=== PATIENT | female | born 1955 | race African-American/Black ===

== ENCOUNTER 2019-11-04 18:16 | Inpatient (IN) | payer MEDICARE ==
[~2019-11-04] VITALS: Ht 160 cm; Wt 47.2 kg
[2019-11-04 21:50] VITALS: BP 146/78
--- NOTE | 2019-11-04 21:50 | NUR ---
GPS ADMISSION NOTES: ADMITTED THIS 64-Y/O, FEMALE, PATIENT ADMITTED ON 5150 HOLD FOR DTS. PER HOLD PT. STATED SHE HAS BEEN VERY SAD DUE TO MARITAL PROBLEMS, AND THINKING THAT SHE HAS NO MORE PURPOSE IN LIFE. PATIENT STATED SHE WENT TO THE [place] WITH THE INTENTION OF KILLING HERSELF BY DRINKING A LOT OF ALCOHOL, DOING COCAINE AND CUTTING SELF. UPON FACE TO FACE ASSESSMENT, PATIENT IS A&O X3-4, DEPRESSED, UNKEMPT, DISHEVELED, CALM AND COOPERATIVE WITH CARE, AMBULATORY. IN NO APPARENT DISTRESS NOTED. DENIES SI/HI/AVH AT THIS TIME. SKIN ASSESSMENT DONE. PATIENT REFUSED TO SIGN ADMISSION CONSENTS, STATES "I AM EXHAUSTED". PT'S RIGHTS HANDBOOK & PT. GUIDELINES BOOK GIVEN & DISCUSSED TO THE PATIENT. PT BELONGINGS WERE INVENTORIED & CHECKED FOR CONTRABAND. PT. IS UNDER THE PSYCHIATRIC CARE OF DR. WHEATLEY, ORDERS OBTAINED & UNDER THE MEDICAL CARE OF DHEERAJ PELLETIER. PATIENT EDUCATED TO THE USE OF CALL MARSHALL. BED ALARM ON. ENVIRONMENTAL SAFETY CHECK DONE. BED LOCKED & IN LOW POSITION. WILL CONTINUE TO MONITOR Q15 MINUTES FOR SAFETY & BEHAVIOR.
[2019-11-04] MEDS ORDERED: BROM2.5T15 PO (22:33)
[2019-11-04] MEDS ORDERED: DIAZ5TAB4 PO (22:34)
[2019-11-04] MEDS ORDERED: TRAM50TA2 PO (22:37)
[2019-11-04] MEDS ORDERED: NORE-2 PO (22:37)
[2019-11-04] MEDS ORDERED: TRAZ-257 PO (22:38)
[2019-11-04] MEDS ORDERED: BUTA1CAP5 PO (22:39)
[2019-11-04] MEDS ORDERED: LORAZEPAM 0.5 MG TABLET PO PRN (23:30)
[2019-11-04] MEDS ORDERED: MAG HYDROX/AL HYDROX/SIMETH 30 ML UDC PO PRN (23:30)
[2019-11-04] MEDS ORDERED: BUTALBITAL/ASPIRIN/CAFFEINE 1 CAP CAPSULE PO PRN (23:30)
[2019-11-04] MEDS ORDERED: ACETAMINOPHEN 325 MG TABLET PO PRN (23:30)
[2019-11-04] MEDS ORDERED: TRAMADOL HCL 50 MG TABLET PO PRN (23:30)
[2019-11-04] MEDS ORDERED: MAGNESIUM HYDROXIDE 30 ML UDC PO PRN (23:30)
[2019-11-04] MEDS ORDERED: BLOOD SUGAR DIAGNOSTIC 1 EACH STRIP IN ONE (23:45)
[2019-11-05] MEDS: TEMAZEPAM 7.5 MG CAPSULE PO PRN ×2 (00:12→01:17)
--- NOTE | 2019-11-05 00:19 | NUR ---
GPS RN NOTE: PATIENT C/O HEADACHE 07/10, TRAMADOL GIVEN ORDERED. PATIENT APPRECIATED. WILL CONTINUE TO MONITOR Q15 MINS FOR SAFETY
[2019-11-05 08:00] VITALS: BP 126/61
[2019-11-05] MEDS ORDERED: ETHINYL ESTRADIOL PO SCH (09:00)
[2019-11-05] MEDS ORDERED: [UNRECOGNIZED DRUG - OTHER] PO SCH (09:00)
--- NOTE | 2019-11-05 10:22 | NUR ---
Family Contact: SW called the pts Rashi ([phone]), but the number was not in service. Addendum: 11/05/19 at 1023 by JUSTUS ACUNA KALPANA will speak to the pt to confirm the phone number in case there is a mistake so that the SW can contact him.
--- NOTE | 2019-11-05 10:33 | NUR ---
Family Contact: KALPANA called the pts , Rashi ([phone]), and informed him that the pt is currently in the hospital and is stating that she would like to return to their home. KALPANA confirmed their address and asked the about whether or not the pt would be safe at home. He stated that he travels a lot for his work and stated that he is planning on bringing her along with him.
--- NOTE | 2019-11-05 11:56 | NUR ---
Initial Discharge Plan: Pt currently resides at her home with her , Rashi ([phone]), located at [address] [place] [address]; ([phone]). Per pt and her , they would like the pt to return to their home. SW will work with the pt and the MD regarding appropriate discharge planning. SW will form a safe and proper discharge.
--- NOTE | 2019-11-05 15:02 | NUR ---
Substance Abuse Intervention: SW conducted a substance abuse intervention with the pt requiring SW to assess, intervene and provide referrals due to her cocaine and alcohol abuse before her admission.
[2019-11-05 16:00] VITALS: BP 134/74
[2019-11-05] MEDS: ENSURE ENLIVE 237 ML LIQUID (VANILLA) PO SCH (17:00)
--- NOTE | 2019-11-05 18:05 | NUR ---
PATIENT'S WILL BE BRING HOPE SO PATIENT WILL RECEIVE HOME MED DURING HER STAY
--- NOTE | 2019-11-05 19:15 | NUR ---
GPS RN NOTES RECEIVED PT IN BED AWAKE, NO S/S OR COMPLAINTS OF PAIN AT THIS TIME. RESPIRATIONS EVEN AND UNLABORED WITH NO S/S OF ACUTE DISTRESS OR SOB NOTED. PT A/O X3. PT DENIES SI/HI AT THIS TIME. SAFETY MEASURES IN PLACE WITH BED IN LOWEST LOCKED POSITION WITH SIDE RAILS UP X2. CALL MARSHALL WITHIN REACH. WILL CONTINUE TO MONITOR.
[2019-11-05 20:50] VITALS: BP 117/67
[2019-11-05] MEDS: TRAZODONE 50 MG TABLET PO SCH (21:36)
[2019-11-05] MEDS: BROMOCRIPTINE MESYLATE (2.5MG) 2.5 MG TABLET PO SCH (21:36)
--- NOTE | 2019-11-06 07:04 | NUR ---
GPS RN NOTES PT IN BED AWAKE, NO S/S OR COMPLAINTS OF PAIN AT THIS TIME. RESPIRATIONS EVEN AND UNLABORED WITH NO S/S OF ACUTE DISTRESS OR SOB NOTED. PT A/O X3. PT DENIES SI/HI AT THIS TIME. SAFETY MEASURES IN PLACE WITH BED IN LOWEST LOCKED POSITION WITH SIDE RAILS UP X2. CALL MARSHALL WITHIN REACH. WILL ENDORSE TO ONCOMING NURSE FOR YONATHAN.
[2019-11-06 07:30] LABS: BASOPHILS % (AUTO) 1.1 % (0.0-2.0); EOSINOPHILS % (AUTO) 3.6 % (0.0-6.0); HEMATOCRIT 36 % (33-45); HEMOGLOBIN 11.8 g/dL (11.5-14.8); LYMPHOCYTES # (AUTO) 1.3 /CMM (0.8-4.8); LYMPHOCYTES % (AUTO) 31.8 % (20.0-44.0); MEAN CORPUSCULAR HGB CONC 33 g/dl (31.0-36.0); MEAN CORPUSCULAR VOLUME 93 fL (82-100); MONOCYTES # (AUTO) 0.4 /CMM (0.1-1.30); MONOCYTES % (AUTO) 9.5 % (2.0-12.0); NEUTROPHILS # (AUTO) 2.2 /CMM (1.8-8.9); PLATELET COUNT (AUTO) 238 /CMM (150-450); RED BLOOD CELL COUNT(AUTO) 3.85 MIL/uL (4.0-5.2)
[2019-11-06 07:55] LABS: CALCIUM, SERUM 8.3 mg/dL (8.5-10.1); CREATININE 0.8 mg/dL (0.6-1.3); POTASSIUM 4.2 mmol/L (3.5-5.1)
[2019-11-06 08:00] VITALS: BP 100/57
[2019-11-06] MEDS: ENSURE ENLIVE 237 ML LIQUID (VANILLA) PO SCH ×3 (09:21→17:23)
[2019-11-06] MEDS: ESCITALOPRAM OXALATE (10 MG) 10 MG TABLET PO SCH (09:21)
[2019-11-06 16:06] VITALS: BP 117/63
--- NOTE | 2019-11-06 19:36 | NUR ---
GPS RN NOTES RECEIVED PT IN BED AWAKE, LAYING IN BED. AT BED SIDE. NO C/O OF PAIN AT THIS TIME. RESPIRATIONS EVEN AND UNLABORED WITH NO S/S OF ACUTE DISTRESS. PT A/O X3. PT DENIES SI/HI AT THIS TIME. SAFETY MEASURES IN PLACE WITH BED IN LOWEST LOCKED POSITION WITH SIDE RAILS UP X2. CALL MARSHALL WITHIN REACH. WILL CONTINUE TO MONITOR.
[2019-11-06 20:11] VITALS: BP 117/55
[2019-11-06] MEDS: BROMOCRIPTINE MESYLATE (2.5MG) 2.5 MG TABLET PO SCH (21:51)
[2019-11-06] MEDS: TRAZODONE 50 MG TABLET PO SCH (21:51)
--- NOTE | 2019-11-07 06:32 | NUR ---
GPS RN CLOSING NOTE PATIENT SLEPT 8 HOURS AT NIGHT, NO DISTRESS, NO C/O PAIN VERBALIZED. NO CHANGE OF CONDITION NOTED. AMBULATORY AD LYDIA. MED COMPLAINT. ALL NEEDS ATTENDED TO & MET. SAFETY MEASURES MAINTAINED. Q15 MINS CHECKS DONE. NO SI/HI/AVH VERBALIZED DURING THE SHIFT. BED IN LOW LOCKED POSITION. BED ALARM ON. CALL MARSHALL WITHIN REACH. WILL ENDORSE TO AM RN FOR CONTINUITY OF CARE
[2019-11-07 08:00] VITALS: BP 99/79
[2019-11-07] MEDS: ESCITALOPRAM OXALATE (10 MG) 10 MG TABLET PO SCH (08:44)
[2019-11-07] MEDS: ENSURE ENLIVE 237 ML LIQUID (VANILLA) PO SCH ×3 (08:46→17:40)
[2019-11-07 16:00] VITALS: BP 147/76
[2019-11-07 20:28] VITALS: BP 138/81
[2019-11-07] MEDS: TRAZODONE 50 MG TABLET PO SCH (21:23)
[2019-11-07] MEDS: BROMOCRIPTINE MESYLATE (2.5MG) 2.5 MG TABLET PO SCH (21:23)
--- NOTE | 2019-11-08 06:05 | NUR ---
patient refused skin assessment.
[2019-11-08 08:00] VITALS: BP 111/74
[2019-11-08] MEDS: ESCITALOPRAM OXALATE (10 MG) 10 MG TABLET PO SCH (08:21)
[2019-11-08] MEDS: ENSURE ENLIVE 237 ML LIQUID (VANILLA) PO SCH ×3 (08:22→17:35)
--- NOTE | 2019-11-08 09:14 | NUR ---
Individual Intervention: SW spoke to the pt at bedside regarding her upcoming discharge and the pt stated that her MD had stated that the pt can be discharged today because there is no need for her to be hospitalized. SW stated that she had spoken to the MD earlier that morning and he had stated that the pt made a serious threat and needs to be here for one to two more days. Pt appeared to be agitated and stated that she wanted to be discharged and has already been setting up her aftercare with [facility] and stated that she has an appointment with her therapist and that her nephew will be staying with her as well. SW stated that she would speak to her MD.
--- NOTE | 2019-11-08 11:31 | NUR ---
Family Contact: SW called the pts , Rashi ([phone]), and informed him that the pt is on a 14 day hold and that the pts MD spoke to the SW today and stated that the pt made a serious attempt to end her life and needs to be stable upon discharge with her medications. Pts stated that he understands and that they are making changes so that she has more support. SW stated that the pt may be discharged tomorrow and he stated that he would appreciate that.
--- NOTE | 2019-11-08 15:33 | NUR ---
GROUP NOTE: SW encouraged pt to attend group on this present day discussing "discharge planning." Pt refused to attend stating she wants to leave today and demands the doctor to release her. KALPANA provided intervention and educated pt on discharge and stabilization. Pt stated, "this place is not helping me get better its making me worse, I need to leave the doctor told me I could leave today." KALPANA informed pt that the MD had not given a discharge order for her on this present day and pt became upset and stated she wanted to be left alone.
[2019-11-08 15:40] VITALS: BP 132/68
[2019-11-08 20:08] VITALS: BP 163/74
[2019-11-08] MEDS: TRAZODONE 50 MG TABLET PO SCH (21:09)
[2019-11-08] MEDS: BROMOCRIPTINE MESYLATE (2.5MG) 2.5 MG TABLET PO SCH (21:09)
[2019-11-08 22:00] VITALS: BP 136/77
[2019-11-08] MEDS: TEMAZEPAM 7.5 MG CAPSULE PO PRN (23:12)
[2019-11-09 08:00] VITALS: BP_SYST 121
[2019-11-09] MEDS: ENSURE ENLIVE 237 ML LIQUID (VANILLA) PO SCH ×2 (08:24→12:03)
[2019-11-09] MEDS: ESCITALOPRAM OXALATE (10 MG) 10 MG TABLET PO SCH (08:25)
--- NOTE | 2019-11-09 09:13 | NUR ---
Probable Cause (PC) Hearing Notification: SW called the pts , Rashi ([phone]), and left a voicemail stating that the the pt is having a hearing today around 3:30pm and explained what the hearing entails and the possible results. KALPANA stated that he can be present because the pt would allow him to partake. KALPANA stated that if he has any questions he may contact the SW.
--- NOTE | 2019-11-09 09:34 | NUR ---
Individual Intervention: KALPANA informed the pt that she is having a Probable Cause hearing today around 3:30pm but it can take place earlier. SW informed her of all of the possible results from the hearing and the pt stated that she would like to contest her hold and be released today.
--- NOTE | 2019-11-09 10:30 | NUR ---
Family Contact: KALPANA called the pts , Rashi ([phone]), and informed him that the pt is being discharged by the MD at this time and he stated that he just got out of his meeting and will be on his way to pick her up.
--- NOTE | 2019-11-09 12:40 | NUR ---
ANIMAL CARE SPECIALIST NOTE: 64 YEAR OLD FEMALE DISCHARGED TO HOME IN STABLE CONDITION. COMPLIANT WITH MEDICATIONS, COOPERATIVE WITH TREATMENT PLAN. PATIENT DENIES SI/HI AND [id number] TO GO TO THE CLOSEST ER IF DEVELOPING SI/HI. BEHAVIOR IMPROVED, PSYCHIATRIC TREATMENT PLANS MET, MEDICAL TREATMENT PLAN DEFERRED FOR CONTINUAL MONITORING. EDUCATED PATIENT ABOUT AFTER CARE PLAN AND COPY PROVIDED. RETURNED PERSONAL BELONGINGS TO PATIENT. MEDICATIONS RECONCILED WITH DR. WHEATLEY AND DR. SONG. PATIENT SIGNED DISCHARGE PAPERWORK. SKIN INTACT ON ADMIT AND DISCHARGE. PT DISCHARGED AND LEFT GPS UNIT AT 12:40 VIA WHEELCHAIR.
--- NOTE | 2019-11-09 16:08 | NUR ---
Discharge Note: Pt was discharged back to her home located at [address] [place] [address], [place], [place]; ([phone]). Pt was picked up by her , Rashi ([phone]), around 11:30AM. Upon discharge, the pt appeared to be in a euthymic mood and presented with a calm affect. Pt denied both suicidal and homicidal ideation as well as auditory and visual hallucinations. Pt was provided with three substance abuse referrals and pt was set up with [facility]. Pt has an appointment for November 10 at 3PM. Pt will also follow up with her psychiatrist, Dr. Kennedy Murray located at [address], [place] [address]; ; and a fax of records was sent to: [phone]. Pt has an appointment on November 11 at 11AM. Pt will be under the care of her gatekeeper, Dr. Micheal Gauthier, located at [id number], [place] [address]; .
--- NOTE | 2019-11-25 16:13 | NUR ---
15 Day Substance Abuse Intervention: SW called the pt ([phone]) and the pt picked up and stated that she does not need this intervention or follow up. She stated, "I am fine and I have been doing fine."
== END 2019-11-09 12:40 | disposition home or self-care (01) | DRG 885 ==
LOC: GPS 21:41
PROVIDERS: ADMIT Psychiatry & Neurology Psychiatry; ATTEND Registered Nurse
DX: F33.2 Major depressive disorder, recurrent severe without psychotic features (principal); F23 Brief psychotic disorder; R45.851 Suicidal ideations; F14.90 Cocaine use, unspecified, uncomplicated; Z72.89 Other problems related to lifestyle; Z98.1 Arthrodesis status
CPT/HCPCS: 36415; 80048-TC; 80061-TC; 82962-TC; 85025-TC; 87081-TC